=== PATIENT | male | born 1975 | race African-American/Black ===

== ENCOUNTER 2022-05-31 10:19 | Emergency (ER) | payer BC ==
[~2022-05-31] VITALS: Ht 175.3 cm; Wt 113.9 kg
[2022-05-31] MEDS ORDERED: ALBUTEROL/IPRATROPIUM 3 ML NEB NEB ONE (12:00)
[2022-05-31] MEDS ORDERED: PREDNISONE 20 MG TAB PO ONE (12:00)
[2022-05-31] MEDS ORDERED: PREDNISONE 20 MG TAB ONE (12:07)
[2022-05-31] MEDS ORDERED: ALBUTEROL/IPRATROPIUM 3 ML NEB ONE (12:07)
[2022-05-31] MEDS ORDERED: PROVENTIL HFA6.7 GM INH (13:08)
[2022-05-31] MEDS ORDERED: ALBUTEROL2.5 MG/3 M INH (13:08)
[2022-05-31] MEDS ORDERED: CEFDINIR300 MG PO (13:10)
== END 2022-05-31 13:18 | disposition home or self-care (01) ==
LOC: FSED 10:40
DX: R05.9 Cough, unspecified (principal); J20.9 Acute bronchitis, unspecified; F17.210 Nicotine dependence, cigarettes, uncomplicated
CPT/HCPCS: 83518; 87400; 99283; J7512

== ENCOUNTER 2024-02-28 13:55 | Emergency (ER) | payer BC ==
[~2024-02-28] VITALS: Ht 175.3 cm; Wt 117.9 kg
[~2024-02-28 13:55] MED LIST: ALBUTEROL2.5 MG/3 M INH; CEFDINIR300 MG PO; PROVENTIL HFA6.7 GM INH
[2024-02-28 14:10] VITALS: TEMP 98.4
[2024-02-28] MEDS: FAMOTIDINE 20 MG/2 ML VIAL IV STA (14:54)
[2024-02-28] MEDS: SODIUM CHLORIDE 0.9% 500ML 500 ML IV ONE (14:55)
[2024-02-28] MEDS ORDERED: IOPAMIDOL 370 MG/ML 100 ML INFUS..BTL INJ ONE (15:05)
[2024-02-28 15:59] VITALS: PULSE 81; RESP 18; O2SAT 96
[2024-02-28] MEDS: KETOROLAC TROMETHAMINE 30 MG/ML VIAL IV STA (15:59)
[2024-02-28] MEDS ORDERED: PEPCID20 MG PO (16:45)
== END 2024-02-28 17:55 | disposition home or self-care (01) ==
LOC: FSED 13:57
DX: R10.33 Periumbilical pain (principal); K29.70 Gastritis, unspecified, without bleeding; K80.20 Calculus of gallbladder without cholecystitis without obstruction; I10 Essential (primary) hypertension
CPT/HCPCS: 74177; 80053; 81003; 85025; 99284; J1885; J7040; Q9967